=== PATIENT | female | born 1990 | race Caucasian/White ===

== ENCOUNTER 2017-11-20 15:28 | Emergency (ER) | payer OTHER ==
[2017-11-20 15:47] VITALS: BP 136/93
--- NOTE | 2017-11-20 16:25 | UC ---
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, Pain was sudden and now ROM restricted in all directions - History of Current Complaint Chief Complaint: UCBackPain Stated Complaint: LOWER BACK INJURY Time Seen by Provider: 11/20/17 15:50 Hx Obtained From: Patient Hx Last Menstrual Period: 11/15/17 Onset/Duration: Sudden Onset Timing: Lasting Hours Pain Intensity: 9 Character: Sharp - Allergies/Home Medications Allergies/Adverse Reactions: Allergies Allergy/AdvReac Type Severity Reaction Status Date / Time Estrogens Allergy Severe blood clot Verified 11/20/17 15:48 to brain guaifenesin Allergy Hives Verified 11/20/17 15:41 control pills Allergy blood clot Uncoded 11/20/17 15:41 in brain PMH/Surg Hx/FS Hx/Imm Hx Previously Healthy: Yes Other History Of: Negative For: HIV, Hepatitis B, Hepatitis C, Anticoagulant Therapy - Surgical History Surgical History: Yes Surgery Procedure, Year, and Place: pylonidal cyst - Family History Known Family History: Positive: None, Hypertension - Social History Alcohol Use: Rare Substance Use Type: None Smoking Status (MU): Never Smoked Tobacco - Immunization History Most Recent Influenza Vaccination: 05/26/16 Most Recent Tetanus Shot: Unknown Review of Systems Constitutional: Negative Skin: Negative Eyes: Negative ENT: Negative Respiratory: Negative Cardiovascular: Negative Gastrointestinal: Negative Genitourinary: Negative Motor: Negative Neurovascular: Negative Musculoskeletal: Decreased ROM - LBP Neurological: Negative Psychological: Negative All Other Systems Reviewed And Are Negative: Yes Physical Exam Triage Information Reviewed: Yes Appearance: No Pain Distress Vital Signs: Initial Vital Signs Temp 36.9 C 11/20/17 15:41 Pulse 92 11/20/17 15:41 Resp 16 11/20/17 15:41 BP 136/93 11/20/17 15:41 Pulse Ox 98 11/20/17 15:41 Vital Signs Reviewed: Yes Eye Exam: Normal ENT Exam: Normal Dental Exam: Normal Neck exam: Normal Neck: Positive: 1 Respiratory Exam: Normal Cardiovascular Exam: Normal Abdominal Exam: Normal Musculoskeletal Exam: Normal Musculoskeletal: Positive: Strength Limited @, ROM Limited @ - L4-5 with mild radiation to left buttock and thigh Neurological Exam: Normal Psychological Exam: Normal Skin Exam: Normal Back Pain Course/Dx - Differential Dx/Diagnosis Provider Diagnoses: low back spasm Discharge - Discharge Plan Condition: Stable Disposition: HOME Prescriptions: Naproxen Sodium [Naproxen Sodium ER 500 MG TAB] 500 mg PO BID 10 Days #20 tab tiZANidine TAB* [Zanaflex TAB*] 4 mg PO BEDTIME 5 Days #5 tab Patient Education Materials: Muscle Spasm (ED) Forms: *Work Release Referrals: Kim Strickland MD [Primary Care Provider] - Additional Instructions: take medications as directed
== END 2017-11-20 16:13 | disposition home or self-care (01) ==
LOC: UCEAST 15:28
DX: M62.830 Muscle spasm of back (principal); Z88.8 Allergy status to other drugs, medicaments and biological substances
CPT/HCPCS: 99212; G0463